=== PATIENT | female | born 1975 | race Caucasian/White ===

== ENCOUNTER → 2021-03-06 | Outpatient (CLI) | payer BC ==
[~2021-03-06] MED LIST: NEXI40CA PO; PROZ20CA11 PO
--- NOTE | 2021-03-06 16:25 | RADONC.CN ---
Radiation Oncology Hx/Consult Radiation Oncology Consult Date of Service: Mar 06, 2021 Pt Identifier Lindsey Love is a 45 year old female former smoker with a history of left breast cancer mpT2N0(i+)M0 ER/HI+ HER2- Grade 2 stage IA. She is s/p BL mastectomy with Dr. Camp on 12/27/20. She had multiple foci of invasive disease as well as extensive DCIS, superficial and deep margins were both positive. Her oncotype score was 3. She is seen today for consideration of PMRT. Diagnosis/Treatment History Oncologic History Screening mammogram in November 2020 with left breast abnormality. Biopsy on 12/09/20 showed IDC ER/HI+ HER2- grade 1-2. MRI on 12/18/20 showed multiple foci of left sided disease. 01/28/21 She underwent BL mastectomy right breast had DCIS pTis ER/HI+. Left breast had mpT2N0(i+)M0 Grade 2 positive anterior and deep margins. Oncotype score was 3, endocrine therapy was recommended. Genetic testing was negative She has undergone immediate reconstruction with tissue expanders placed at surgery. Breast history: 1st @ 17 Menses @ 10 Menopause @ 28 (surgical for bleeding fibroids) Was on HRT from menopause to her breast cancer was diagnosed No IVF No OCP Interval History Lindsey is here with her supportive . She feels well, aside from some chest wall pain, under the reconstructed breasts both sides. Improves with NSAIDs/Tylenol, per her and , she is reticent to take meds regularly. 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 She has no cosmetic concerns at this time. Plan is for implant based reconstruction, has expanders in place at maximal fill. Past Medical History: GERD Past Surgical History: REMBERTO/BSO (bleeding @ 28) Family History: Mother breast cancer Social History: 30 pack year former smoker Drinks on occasion Allergies / Meds Home Meds Reported Medications Fluoxetine HCl (Prozac) 20 Mg Capsule, 1 CAP PO DAILY for 30 Days, #30 CAP 03/06/21 Esomeprazole Magnesium (Nexium) 40 Mg Capsule., 1 CAP PO DAILY for 30 Days, #30 CAP 03/06/21 Review of Systems Constitutional: Denies: Fever, Fatigue Eyes: Denies: Pain HEENT: Denies: Head Aches Skin: Denies: Rash Pulmonary: Denies: Dyspnea, Cough Cardiovascular: Reports: Chest Pain; Denies: Palpitations, Edema Breast: Denies: New Breast Lumps / Masses, Breast Skin Changes, Breast Pain or Tenderness Gastrointestinal: Denies: Nausea, Vomiting Hematologic: Denies: Bruising, Bleeding Excessively Endocrine: Denies: Cold Intolerance Musculoskeletal: Denies: Neck pain, Back pain Neurological: Denies: Weakness, Numbness Psych: Reports: Mood Normal Vital Signs Wt 152 lbs T 97 P 82 RR 18 BP 103/67 O2 97% Pain 0 Fatigue 0 General Exam: Alert, Cooperative, No Acute Distress Eye Exam: PERRLA EOMI ENT EXAM: Atraumatic Neck Exam: Supple Chest Exam: Clear to auscultation Heart Exam: Rate Normal Breast Exam: Symmetric Bilaterally; Negative: Lumps or Masses Abdomen Exam: Soft Extremity Exam: Other (ROM intact BL UE); Negative: Edema Skin Exam: Nl turgor and temperature Neuro Exam: Normal Gait, Normal Speech, Cranial Nerves 3-12 NL Psych Exam: Mental status NL Diagnostic and Laboratory Diagnostic Review Radiologic images, relevant labs and pathology reports were personally reviewed and discussed with Ms. Love. Assessment and Plan Impression Ms. Love is a 45 year old female former smoker with a history of left breast cancer mpT2N0(i+)M0 ER/HI+ HER2- Grade 2 stage IA. She is s/p BL mastecto my with Dr. Camp on 12/27/20. She had multiple foci of invasive disease as well as extensive DCIS, superficial and deep margins were both positive. Her oncotype score was 3. She is seen today for consideration of PMRT. Stage Left breast cancer mpT2N0(i+)M0 ER/HI+ HER2- Grade 2 stage I Performance Status ECOG 0 Plan We had an extensive discussion with Ms. Love regarding the diagnosis at hand and available therapeutic options. She has done well post-operatively and has had immediate reconstruction with tissue expanders in place. She does have some lower chest pains, which are bothersome. I recommended she take NSAIDs and or tylenol with more frequency as these are safe medications and per her they do improve her symptoms. If these are ineffective I would be willing to prescribe gabapentin or other neuropathy medication. Based on her positive margins we discussed that per NCCN guidelines there is a strong recommendation for adjuvant RT to the chest wall. In her case I recommend 50.4 Gy in 28 fractions to the left chest wall with 3D conformal planning and DIBH technique to spare heart and lung dose. I will omit the regional nodes as there is no firm indication for covering these areas, even in light of the isolated tumor cell noted in one of her sentinel nodes. Adding these areas would only precipitate toxicity for unclear benefit. We discussed the logistics of receiving radiation therapy in detail including the need for a 1-time planning session. This can occur in the next week or two. We reviewed the side effects of treatment including fatigue, skin reaction, fibrosis, late cardiac and lung toxicity, and implant failure. After discussing the risks, benefits and alternatives to radiation therapy, Ms. Love was amenable to pursuing radiotherapy. All questions were answered to the patient's satisfaction. We instructed the patient that if there were any questions,concerns or changes in clinical status in the interim to contact us. Recommendations 50.4 Gy in 28 fractions to the left chest wall with DIBH technique Simulation in the coming weeks Billing Statement Total time of [46] minutes was spent preparing for the visit [2], obtaining HPI [8], examining the patient [2], reviewing diagnostic tests [6], discussing management options [18], coordinating care [2], and writing this note [8]. KYAW FAYE MD Mar 06, 2021 16:25
== END ==
LOC: M ONCR 14:11
PROVIDERS: ATTEND General Practice
DX: C50.912 Malignant neoplasm of unspecified site of left female breast (principal); Z80.3 Family history of malignant neoplasm of breast; Z87.891 Personal history of nicotine dependence; Z90.13 Acquired absence of bilateral breasts and nipples

== ENCOUNTER 2021-03-14 10:33 | Outpatient (RCR) | payer BC ==
[2021-04-14] MEDS ORDERED: TRIA1CR80 TOP (15:46)
== END 2021-03-18 ==
LOC: M ONCR 10:33
PROVIDERS: ATTEND General Practice
DX: C50.112 Malignant neoplasm of central portion of left female breast (principal)

== ENCOUNTER → 2021-04-17 | Outpatient (RCR) | payer BC ==
[~2021-04-17] MED LIST changes: +TRIA1CR80 TOP
== END ==
LOC: M ONCR 03-19 16:00
PROVIDERS: ATTEND General Practice
DX: C50.112 Malignant neoplasm of central portion of left female breast (principal)

== ENCOUNTER → 2021-05-02 | Outpatient (CLI) | payer BC ==
--- NOTE | 2021-05-02 15:25 | DEXAMM ---
INDICATION: MENOPAUSE 2/2 OOPHORECTOMY HX BREAST CA. COMPARISON: None. TECHNIQUE: Bone density was measured using dual-energy x-ray absorptiometry (DEXA). FINDINGS: AP SPINE L1-L4 BMD 0.133 g/cm2 Young Adult T-Score -0.5 Age Matched Z-Score -0.3. LT FEMUR, TOTAL BMD 0.910 g/cm2 Young Adult T-Score -0.8 Age Matched Z-Score -0.4. LT NECK BMD 0.931 g/cm2 Young Adult T-Score -0.8 Age Matched Z-Score -0.1. RT FEMUR, TOTAL BMD 0.926 g/cm2 Young Adult T-Score -0.6 Age Matched Z-Score -0.3. RT NECK BMD 0.946 g/cm2 Young Adult T-Score -0.7 Age Matched Z-Score 0.0. IMPRESSION: There is normal bone density of the spine. There is normal bone density of the left hip. There is normal bone density of the right hip. FOLLOW-UP: Recommendation for the next bone density exam: Five years. <Electronically signed by Kali Lozano > 05/02/21 [id number]
== END ==
LOC: M WHC 13:58
PROVIDERS: ATTEND Internal Medicine Hematology & Oncology
DX: C50.812 Malignant neoplasm of overlapping sites of left female breast (principal); E89.41 Symptomatic postprocedural ovarian failure

== ENCOUNTER 2021-05-05 15:07 | Outpatient (RCR) | payer BC | END 2021-05-18 | LOC: M ONCR 15:07 | PROVIDERS: ATTEND General Practice | DX: C50.112 Malignant neoplasm of central portion of left female breast (principal); M79.622 Pain in left upper arm; L29.8 Other pruritus ==

== ENCOUNTER → 2021-05-20 | Outpatient (CLI) | payer BC ==
--- NOTE | 2021-05-20 14:22 | RADENCPD ---
Date/Time of Encounter Date of Encounter: May 20, 2021 Time of Encounter: 14:21 Encounter Lindsey came in for a skin check now 2 weeks post RT to the left breast. On exam she has resolving CTCAE grade 1 radiation dermatitis in the left IMF, the left axilla skin has healed completely. She is doing well. Skin reaction much improved. She can see me again in 6 months time. She may call in the meantime with any concerns. KYAW FAYE MD May 20, 2021 14:22
== END ==
LOC: M ONCR 13:13
PROVIDERS: ATTEND General Practice
DX: C50.112 Malignant neoplasm of central portion of left female breast (principal); Z92.3 Personal history of irradiation; L57.8 Other skin changes due to chronic exposure to nonionizing radiation

== ENCOUNTER → 2021-12-02 | Outpatient (CLI) | payer BC | LOC: M ONCR 15:30 | PROVIDERS: ATTEND General Practice | DX: Z08 Encounter for follow-up examination after completed treatment for malignant neoplasm (principal); C50.112 Malignant neoplasm of central portion of left female breast; D05.11 Intraductal carcinoma in situ of right breast; Z79.811 Long term (current) use of aromatase inhibitors; Z79.899 Other long term (current) drug therapy; Z87.891 Personal history of nicotine dependence; Z90.13 Acquired absence of bilateral breasts and nipples; Z92.3 Personal history of irradiation ==

== ENCOUNTER → 2022-02-25 | Outpatient (CLI) | payer BC ==
[~2022-02-25] MED LIST changes: +ANAS1TAB2 PO; +GABA-1171 PO
== END ==
LOC: M ONCR 15:21
PROVIDERS: ATTEND General Practice
DX: C50.112 Malignant neoplasm of central portion of left female breast (principal); Z92.3 Personal history of irradiation; Z87.891 Personal history of nicotine dependence; Z79.899 Other long term (current) drug therapy

== ENCOUNTER → 2022-06-04 | Outpatient (CLI) | payer BC ==
[~2022-06-04] MED LIST changes: +VENL75CA47 PO
== END ==
LOC: M ONCR 15:19
PROVIDERS: ATTEND General Practice
DX: C50.112 Malignant neoplasm of central portion of left female breast (principal); N60.22 Fibroadenosis of left breast; R23.2 Flushing; Z79.811 Long term (current) use of aromatase inhibitors; Z79.899 Other long term (current) drug therapy; Z87.891 Personal history of nicotine dependence; Z90.13 Acquired absence of bilateral breasts and nipples; Z92.3 Personal history of irradiation; Z98.82 Breast implant status

== ENCOUNTER → 2022-07-09 | Outpatient (CLI) | payer BC | LOC: M SOG 14:46 | PROVIDERS: ATTEND Physician Assistant | DX: M65.311 Trigger thumb, right thumb (principal) ==

== ENCOUNTER → 2022-10-01 | Outpatient (CLI) | payer BC | LOC: M ONCR 15:28 | PROVIDERS: ATTEND General Practice | DX: C50.112 Malignant neoplasm of central portion of left female breast (principal); L59.8 Other specified disorders of the skin and subcutaneous tissue related to radiation; Z79.811 Long term (current) use of aromatase inhibitors; Z79.899 Other long term (current) drug therapy; Z87.891 Personal history of nicotine dependence; Z90.13 Acquired absence of bilateral breasts and nipples; Z92.3 Personal history of irradiation ==

== ENCOUNTER → 2022-10-28 | Outpatient (CLI) | payer BC ==
[~2022-10-28] MED LIST changes: +PROHANCE 279.3MG/ML 15ML VIAL ONE
== END ==
LOC: M PLAIMG 08:46
PROVIDERS: ATTEND General Practice
DX: C50.112 Malignant neoplasm of central portion of left female breast (principal); Z98.82 Breast implant status
CPT/HCPCS: A9576; C8908

== ENCOUNTER → 2022-11-10 | Outpatient (CLI) | payer BC ==
[~2022-11-10] MED LIST changes: +**SFHN** SODIUM BICARBONATE 8.4% 10MEQ 10ML VIAL ONE; +LIDOCAINE 1% MDV 20ML VIAL ONE; -PROHANCE 279.3MG/ML 15ML VIAL ONE
[2022-11-10 09:40] VITALS: BP 110/84
== END ==
LOC: M WHCPRO 08:13
PROVIDERS: ATTEND General Practice
DX: C50.112 Malignant neoplasm of central portion of left female breast (principal)

== ENCOUNTER → 2023-05-13 | Outpatient (CLI) | payer BC ==
[~2023-05-13] MED LIST changes: -**SFHN** SODIUM BICARBONATE 8.4% 10MEQ 10ML VIAL ONE; -LIDOCAINE 1% MDV 20ML VIAL ONE; +PROHANCE 279.3MG/ML 15ML VIAL As Ordered ONE
== END ==
LOC: M RAD 10:24
PROVIDERS: ATTEND General Practice
DX: C50.112 Malignant neoplasm of central portion of left female breast (principal)
CPT/HCPCS: A9576; C8908

== ENCOUNTER → 2023-05-13 | Outpatient (CLI) | payer BC ==
[~2023-05-13] MED LIST changes: -PROHANCE 279.3MG/ML 15ML VIAL As Ordered ONE
== END ==
LOC: M WHC 08:51
PROVIDERS: ATTEND General Practice
DX: C50.112 Malignant neoplasm of central portion of left female breast (principal); Z13.820 Encounter for screening for osteoporosis

== ENCOUNTER → 2023-05-20 | Outpatient (CLI) | payer BC ==
[~2023-05-20] MED LIST changes: +ALEN70TA82 PO
== END ==
LOC: M ONCR 15:12
PROVIDERS: ATTEND General Practice
DX: C50.112 Malignant neoplasm of central portion of left female breast (principal); I89.0 Lymphedema, not elsewhere classified; R22.2 Localized swelling, mass and lump, trunk; M85.80 Other specified disorders of bone density and structure, unspecified site; Z71.2 Person consulting for explanation of examination or test findings; Z79.811 Long term (current) use of aromatase inhibitors; Z79.899 Other long term (current) drug therapy; Z87.891 Personal history of nicotine dependence; Z90.13 Acquired absence of bilateral breasts and nipples; Z92.3 Personal history of irradiation; Z98.82 Breast implant status

== ENCOUNTER → 2023-11-15 | Outpatient (CLI) | payer BC | LOC: M WHC 12:33 | PROVIDERS: ATTEND General Practice | DX: Z85.3 Personal history of malignant neoplasm of breast (principal); Z90.13 Acquired absence of bilateral breasts and nipples; R59.0 Localized enlarged lymph nodes ==

== ENCOUNTER → 2023-11-26 | Outpatient (CLI) | payer BC ==
[~2023-11-26] MED LIST changes: +PROHANCE 279.3MG/ML 15ML VIAL ONE
== END ==
LOC: M PLAIMG 12:33
PROVIDERS: ATTEND General Practice
DX: Z85.3 Personal history of malignant neoplasm of breast (principal); Z90.12 Acquired absence of left breast and nipple; R92.8 Other abnormal and inconclusive findings on diagnostic imaging of breast
CPT/HCPCS: A9576; C8908

== ENCOUNTER → 2023-11-30 | Outpatient (CLI) | payer BC ==
[~2023-11-30] MED LIST changes: -PROHANCE 279.3MG/ML 15ML VIAL ONE
== END ==
LOC: M ONCR 09:53
PROVIDERS: ATTEND General Practice
DX: Z08 Encounter for follow-up examination after completed treatment for malignant neoplasm (principal); Z85.3 Personal history of malignant neoplasm of breast; Z71.2 Person consulting for explanation of examination or test findings; Z79.811 Long term (current) use of aromatase inhibitors; Z87.891 Personal history of nicotine dependence; Z79.899 Other long term (current) drug therapy; Z90.13 Acquired absence of bilateral breasts and nipples; Z92.3 Personal history of irradiation; Z98.82 Breast implant status

== ENCOUNTER → 2024-05-23 | Outpatient (CLI) | payer BC | LOC: M WHC 11:18 | PROVIDERS: ATTEND General Practice | DX: C50.112 Malignant neoplasm of central portion of left female breast (principal); R59.0 Localized enlarged lymph nodes; M85.88 Other specified disorders of bone density and structure, other site; Z79.899 Other long term (current) drug therapy ==

== ENCOUNTER → 2024-06-01 | Outpatient (CLI) | payer BC | LOC: M ONCR 15:24 | PROVIDERS: ATTEND General Practice | DX: C50.912 Malignant neoplasm of unspecified site of left female breast (principal); Z79.811 Long term (current) use of aromatase inhibitors; Z79.83 Long term (current) use of bisphosphonates; Z87.891 Personal history of nicotine dependence; Z79.899 Other long term (current) drug therapy; Z90.13 Acquired absence of bilateral breasts and nipples; Z92.3 Personal history of irradiation ==

== ENCOUNTER → 2024-11-17 | Outpatient (CLI) | payer BC ==
[~2024-11-17] MED LIST changes: +PROHANCE 279.3MG/ML 15ML VIAL ONE
== END ==
LOC: M PLAIMG 14:06
PROVIDERS: ATTEND General Practice
DX: Z08 Encounter for follow-up examination after completed treatment for malignant neoplasm (principal); Z85.3 Personal history of malignant neoplasm of breast; Z90.13 Acquired absence of bilateral breasts and nipples
CPT/HCPCS: A9576; C8908

== ENCOUNTER → 2024-11-28 | Outpatient (CLI) | payer BC ==
[~2024-11-28] MED LIST changes: -PROHANCE 279.3MG/ML 15ML VIAL ONE
== END ==
LOC: M ONCR 15:24
PROVIDERS: ATTEND General Practice
DX: Z08 Encounter for follow-up examination after completed treatment for malignant neoplasm (principal); Z85.3 Personal history of malignant neoplasm of breast; Z79.811 Long term (current) use of aromatase inhibitors; Z79.899 Other long term (current) drug therapy; Z90.13 Acquired absence of bilateral breasts and nipples; Z92.3 Personal history of irradiation; Z98.82 Breast implant status; Z87.891 Personal history of nicotine dependence